=== PATIENT | female | born 1950 | race Caucasian/White ===

== ENCOUNTER 2017-04-09 18:25 | Observation (INO) | payer OTHER, MEDICAID ==
[~2017-04-09] VITALS: Ht 167.6 cm; Wt 85.0 kg
[~2017-04-09 18:25] MED LIST: OMEG100016 PO; OMEP20TA42 PO
[2017-04-09 18:32] VITALS: Ht 167.6 cm; Wt 85.0 kg
[2017-04-09] MEDS ORDERED: NITROGLYCERIN 2% 1 GM OINT PKT TD STA (18:40)
[2017-04-09] MEDS ORDERED: ASPIRIN 81 MG TAB PO STA (18:40)
[2017-04-09] MEDS ORDERED: ONDANSETRON 4 MG INJ IV STA ×2 (18:48→19:54)
[2017-04-09] MEDS ORDERED: NITROGLYCERIN (SL) 0.4 MG TAB SL PRN (19:00)
[2017-04-09 19:03] LABS: BASOPHILS % 0.3 % (0.0-2.0); EOSINOPHILS # 0.1 10^3/ul (0.0-0.5); EOSINOPHILS % 0.7 % (0.0-7.0); HEMATOCRIT 37.4 % (37.0-47.0); HEMOGLOBIN 11.8 g/dl (12.0-16.0); LYMPHOCYTES # 1.1 10^3/ul (0.8-2.9); LYMPHOCYTES % 12.4 % (15.0-51.0); MEAN CORPUSCULAR HEMOGLOBIN 27.7 pg (29.0-33.0); MEAN CORPUSCULAR HGB CONC 31.6 g/dl (32.0-37.0); MEAN CORPUSCULAR VOLUME 87.8 fl (82.0-101.0); MEAN PLATELET VOLUME 11.8 fl (7.4-10.4); MONOCYTE # 0.6 10^3/ul (0.3-0.9); MONOCYTES % 7.1 % (0.0-11.0); NEUTROPHILS % 79.3 % (39.0-77.0); PLATELET COUNT 209 10^3/UL (140-415); RED BLOOD COUNT 4.26 10^6/ul (4.20-5.40); RED CELL DISTRIBUTION WIDTH 16.7 % (11.5-14.5); WHITE BLOOD COUNT 8.8 10^3/ul (4.8-10.8)
[2017-04-09 19:20] LABS: INR 1.04; PARTIAL THROMBOPLASTIN TIME 27.2 Sec (25.0-35.0); PROTIME 13.6 Sec (12.2-14.2); PT RATIO 1.1
[2017-04-09 19:22] LABS: ANION GAP 19 (8-16); BLOOD UREA NITROGEN 17 mg/dl (7-20); CALCIUM 9.5 mg/dl (8.4-10.2); CARBON DIOXIDE 24 mmol/L (21-31); CHLORIDE 99 mmol/L (97-110); CREATININE 0.76 mg/dl (0.44-1.00); GLUCOSE 130 mg/dl (70-220); POTASSIUM 4.1 mmol/L (3.5-5.1); SODIUM 138 mmol/L (135-144)
[2017-04-09 19:33] LABS: TROPONIN-I < 0.012 ng/ml (0.00-0.12)
[2017-04-09] MEDS ORDERED: morphine 4 MG/ML VIAL IV STA (19:54)
--- NOTE | 2017-04-09 20:06 | RADRPT ---
PROCEDURE: XR Chest. CLINICAL INDICATION: Chest pain. TECHNIQUE: Portable AP semi erect view of the chest was obtained. COMPARISON: None available. FINDINGS: The cardiomediastinal silhouette is within normal limits. Mild left basilar subsegmental atelectasi s with slight elevation of the left hemidiaphragm is noted. The right lung is clear. There is no e vidence for pleural effusion, pneumothorax or pulmonary vascular congestion. The osseous structures are intact with no evidence for acute abnormality. Calcification is visible within the aortic arch. RPTAT:HJJR IMPRESSION: 1. Mild left basilar subsegmental atelectasis with associated elevation of the left hemidiaphragm. 2. Aortic atherosclerosis is present. Physician Ernie Date Time Electronically viewed and signed by Physician Ernie on 04/09/2017 20:05 JR/
[2017-04-09] MEDS ORDERED: ONDANSETRON 4 MG INJ IV PRN (20:30)
[2017-04-09] MEDS ORDERED: ACETAMINOPHEN 325 MG TAB PO PRN ×2 (20:30→22:30)
[2017-04-09] MEDS ORDERED: LORAZEPAM 2 MG INJ IV ONE (20:30)
[2017-04-09 21:12] VITALS: TEMP 98.3
--- NOTE | 2017-04-09 21:12 | RADRPT ---
PROCEDURE: CT abdomen and pelvis without contrast. CLINICAL INDICATION: Flank pain TECHNIQUE: CT scan of the abdomen and pelvis without contrast was performed and is reconstructed a t 2.5 mm contiguous axial intervals from the dome of the diaphragm to the inferior pubic rami.. The patient was scanned without intravenous contrast. Sagittal and coronal reformatted images were obt ained from the axial source images. The calculated radiation dose measures 790 mGy centimeters. The CTDI measures 14 mGy. COMPARISON: None. FINDINGS: Noted is a ground-glass interstitial infiltrate at the left lung base. No alveolar infiltrate or ma ss is present. There is no effusion. The liver is of normal size, contour and attenuation with no solid mass or ductal dilatation. 5 mm c yst is seen on the inferior aspect of the right lobe of the liver. No gallstones are visualized. No splenic, adrenal or pancreatic abnormalities present. Kidneys are of normal size and contour. No hydronephrosis, calculus or solid masses seen. There ar e parapelvic cysts in the left kidney. Ureters are of normal course and caliber with no stone. No b ladder mass or stone is present. Uterus is been removed. There is no adnexal mass. There is no aneurysm. No adenopathy is present. No bowel mass or obstruction is present. The appendix is normal. No phlegmon, ascites or pneumop eritoneum is visualized. There is a paraumbilical hernia containing fat. The osseous structures are intact. IMPRESSION: No evidence of urolithiasis, obstructive uropathy, diverticulitis or appendicitis. Parapelvic cysts left kidney. Tiny hepatic cyst. Post hysterectomy. Ground-glass infiltrate left lung base. Question early interstitial pneumonia. .Ross Hurt MD, MD Date Time Electronically viewed and signed by .Ross Hurt MD, on 04/09/2017 21:12 .A/
--- NOTE | 2017-04-09 21:28 | ERA ---
ER Documentation Chief Complaint Date/Time DATE: 04/09/17 TIME: 21:26 Chief Complaint cp and sob x 2 days HPI Patient is a 67-year-old female with hypertension who presents with chest pain and shortness of breath. She has had the symptoms for the past 2 days. She has not been feeling well in general. She has vomiting and diarrhea. She was recently discharged from [facility] with the says that her diagnosis was "tachycardia and shortness of breath". Upon review of old medical records this is the patient's third visit to the ER since 2012. Her primary doctor is Dr. Markham. ROS All systems reviewed and are negative except as per history of present illness. Medications Home Meds Reported Medications [place]-3 Fatty Acids ([place]iterocks-3) 1,000 Mg Capsule, PO DAILY 09/25/12 Omeprazole (Omeprazole) 20 Mg Tablet.dr, PO DAILY 09/25/12 Allergies Allergies: Coded Allergies: vancomycin (Verified Allergy, Intermediate, 04/09/17) cephalexin (Verified Allergy, Mild, ITCHY, RASH, 04/09/17) sulfamethoxazole (Verified Allergy, Mild, ITCHY, RASH, 04/09/17) trimethoprim (Verified Allergy, Mild, ITCHY, RASH, 04/09/17) PMhx/Soc History of Surgery: Yes (ANEURYSM 06/01, HERNIA/HYSTERO/VARICOSE VEINS/CARPAL TUNNEL) Anesthesia Reaction: No Hx Neurological Disorder: No Hx Respiratory Disorders: No Hx Cardiac Disorders: No Hx Psychiatric Problems: No Hx Miscellaneous Medical Probl: No Hx Alcohol Use: Yes (HOLIDAYS) Hx Substance Use: No Hx Tobacco Use: No Smoking Status: Never smoker FmHx Family History: No coronary disease Physical Exam Vitals Vital Signs Date Time Temp Pulse Resp B/P Pulse Ox O2 Delivery O2 Flow Rate FiO2 04/09/17 21:12 98.3 108 16 112/83 95 Nasal Cannula 2.0 04/09/17 18:32 98.2 109 22 122/59 100 Physical Exam Const: Moderate distress Head: Atraumatic Eyes: Normal Conjunctiva ENT: Normal External Ears, Nose and Mouth. Neck: Full range of motion..~ No meningismus. Resp: Clear to auscultation bilaterally Cardio: Regular rate and rhythm, no murmurs Abd: Soft, non tender, non distended. Normal bowel sounds Skin: Pale skin Back: No midline or flank tenderness Ext: No cyanosis, or edema Neur: Awake and alert Psych: Normal Mood and Affect Result Diagram: 04/09/178 04/09/178 Results 24 hrs Laboratory Tests Test 04/09/17 18:48 White Blood Count 8.810^3/ul Red Blood Count 4.2610^6/ul Hemoglobin 11.8g/dl Hematocrit 37.4% Mean Corpuscular Volume 87.8fl Mean Corpuscular Hemoglobin 27.7pg Mean Corpuscular Hemoglobin Concent 31.6g/dl Red Cell Distribution Width 16.7% Platelet Count 48169^3/UL Mean Platelet Volume 11.8fl Neutrophils % 79.3% Lymphocytes % 12.4% Monocytes % 7.1% Eosinophils % 0.7% Basophils % 0.3% Nucleated Red Blood Cells % 0.0/100WBC Neutrophils # 7.010^3/ul Lymphocytes # 1.110^3/ul Monocytes # 0.610^3/ul Eosinophils # 0.110^3/ul Basophils # 0.010^3/ul Nucleated Red Blood Cells # 0.010^3/ul Prothrombin Time 13.6Sec Prothrombin Time Ratio 1.1 INR International Normalized Ratio 1.04 Activated Partial Thromboplast Time 27.2Sec Sodium Level 138mmol/L Potassium Level 4.1mmol/L Chloride Level 99mmol/L Carbon Dioxide Level 24mmol/L Anion Gap 19 Blood Urea Nitrogen 17mg/dl Creatinine 0.76mg/dl Glucose Level 130mg/dl Calcium Level 9.5mg/dl Troponin I < 0.012ng/ml Current Medications Medications (Trade) Dose Ordered Sig/Volodymyr Route PRN Reason Start Time Stop Time Status Last Admin Dose Admin Aspirin (Aspirin) 162 mg ONCE STAT PO 04/09/17 18:40 04/09/17 18:41 DC 04/09/17 19:01 Nitroglycerin (Nitroglycerin 2% Oint) 1 inch ONCE STAT TD 04/09/17 18:40 04/09/17 18:42 DC 04/09/17 19:01 Nitroglycerin (Nitroglycerin (Sl Tab) 0.4 Mg) 1 tab Q5M UP TO 3 DOSES PRN SL CHEST PAIN 04/09/17 19:00 Ondansetron HCl (Zofran Inj) 4 mg ONCE STAT IV 04/09/17 18:48 04/09/17 18:49 DC 04/09/17 19:01 Morphine Sulfate (morphine) 4 mg ONCE STAT IV 04/09/17 19:54 04/09/17 19:55 DC 04/09/17 20:07 Ondansetron HCl (Zofran Inj) 4 mg ONCE STAT IV 04/09/17 19:54 04/09/17 19:55 DC 04/09/17 20:07 Lorazepam (Ativan) 0.5 mg ONCE ONCE IV 04/09/17 20:30 04/09/17 20:31 DC 04/09/17 20:37 Ondansetron HCl (Zofran Inj) 4 mg ER BRIDGE PRN IV NAUSEA AND/OR VOMITING 04/09/17 20:30 04/10/17 20:29 Acetaminophen (Tylenol Tab) 650 mg ER BRIDGE PRN PO MILD PAIN/FEVER 04/09/17 20:30 04/10/17 20:29 Procedures/MDM EKG #1 read by me: Rate/Rhythm: Regular rate and rhythm at a normal rate Intervals: Normal Impression: ST depressions without ST elevations concerning for ischemia EKG #2 read by me: Rate/Rhythm: Regular rate and rhythm at a normal rate Intervals: Normal Impression: ST depressions without ST elevations concerning for ischemia Chest x-ray shows no pneumonia or pneumothorax per radiology. CT abdomen pelvis shows no sign of obstruction or kidney stone per radiology. Patient is a 67-year-old female who presents with chest pain and shortness of breath. I was concerned with her abnormal EKG about a possible acute coronary syndrome. At this point I doubt pneumonia, pneumothorax, pulmonary embolism, or aortic dissection. The patient has anemia with a hemoglobin of 11.8 but does not require transfusion at this time. She was given aspirin, nitroglycerin , and morphine. I spoke with Dr. Cummings for admission to a telemetry bed as the patient has regal insurance and he is covering for regal. The patient will need further workup for the cause of her symptoms. Departure Diagnosis: Primary Impression: Chest pain Qualified Code: R07.9 - Chest pain, unspecified type Condition: MEAGHAN Ledbetter MD Apr 09, 2017 21:28
[2017-04-09] MEDS ORDERED: ATOR10TA65 PO (21:50)
[2017-04-09] MEDS ORDERED: METO-448 PO (21:50)
[2017-04-09] MEDS ORDERED: APIX5TAB PO (21:50)
[2017-04-09] MEDS ORDERED: FLEC50TA PO (21:50)
[2017-04-09] MEDS ORDERED: LINA145C PO (21:50)
[2017-04-09 22:06] VITALS: PULSE 104
[2017-04-09] MEDS ORDERED: ZOLPIDEM 5 MG TAB PO PRN (22:30)
[2017-04-09] MEDS ORDERED: morphine 2 MG INJ IV PRN (22:30)
[2017-04-10] VITALS (13 sets, daily range): BP systolic 102–112; BP diastolic 55–65; PULSE 68–114; RESP 16–20
[2017-04-10 01:33] LABS: CREATINE KINASE 34 IU/L (23-200)
[2017-04-10 01:46] LABS: CK-MB 0.38 ng/ml (0.0-2.4)
[2017-04-10 01:54] LABS: TROPONIN-I < 0.012 ng/ml (0.00-0.12)
[2017-04-10] MEDS: ONDANSETRON 4 MG INJ IV PRN ×2 (03:40→07:49)
[2017-04-10] MEDS: PANTOPRAZOLE (EC) 40 MG TAB PO SCH (06:08)
[2017-04-10 07:52] LABS: CREATINE KINASE 31 IU/L (23-200)
[2017-04-10 07:59] LABS: CK-MB 0.42 ng/ml (0.0-2.4)
[2017-04-10] MEDS ORDERED: LINACLOTIDE 145 MCG XX SCH (08:00)
[2017-04-10 08:16] LABS: TROPONIN-I < 0.012 ng/ml (0.00-0.12)
[2017-04-10] MEDS ORDERED: NON-FORMULARY/PATIENT OWN MED (Linaclotide (Linzess) 145 MCG) XX SCH (09:00)
[2017-04-10] MEDS ORDERED: APIXABAN 5 MG TABLET PO SCH (09:00)
[2017-04-10] MEDS ORDERED: FLECAINIDE 50 MG TAB PO SCH (09:00)
[2017-04-10] MEDS ORDERED: METOPROLOL 25 MG TAB PO SCH (09:00)
--- NOTE | 2017-04-10 14:37 | HP ---
Date/Time of Note Date/Time of Note DATE: 04/10/17 TIME: 14:16 Assessment/Plan VTE Prophylaxis VTE Prophylaxis Intervention: other (On Eliquis) Lines/Catheters IV Catheter Type (from [facility]): Peripheral IV Urinary Cath still in place: No Assessment/Plan Assessment/Plan 67-year-old female: 1. Atrial flutter, recently diagnosed a couple of weeks ago, patient currently on flecainide and metoprolol and Eliquis, apparently was scheduled for follow- up as an outpatient for possible cardioversion. Given recurrence of symptoms, medications being continued and cardiology consulted for possible inpatient cardioversion if indicated. Heart rate is better controlled currently. Thyroid function testing pending, 2D echocardiogram ordered. Cardiac enzymes negative 3. 2. Hyperlipidemia: Check fasting lipid panel, patient already back on statin therapy 3. Chronic constipation, patient already had full workup as an outpatient and supposed to be on Linzess that she has not been compliant with as she claims that is not working. Prophylaxis: Protonix for GI prophylaxis, patient already on Eliquis Disposition: Cardiology evaluation pending, continue current medications. HPI/ROS Admit Date/Time Admit Date/Time Apr 09, 2017 at 20:28 Hx of Present Illness Chief complaint: Palpitations, diaphoresis History of presenting illness: This is a 67-year-old female with history of chronic constipation, mild hyperlipidemia and recently admitted at [facility] 2 weeks ago with diagnosis of either atrial flutter or atrial fibrillation. Patient was seen by Dr. Varela at [facility], she was discharged on flecainide metoprolol and Eliquis. Patient reports that she was doing that fairly well at home however last night had another episode of palpitations with diaphoresis also subsequently had nausea and vomiting. She came to [facility] was evaluated. She was found to be in atrial flutter. She has been admitted on telemetry floor, echocardiogram has been reordered. I have talked to Dr. Varela, this morning, apparently the patient was still waiting for authorization to get cardioversion as an outpatient, therefore I will call the cardiology for evaluation. Currently the patient is chest pain-free, her symptoms have resolved, cardiology evaluation will be called. 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 for further management Medical History: high cholesterol Past Surgical History Status post hysterectomy Status post brain aneurysm surgery 2 years ago in a hospital in "[place]" Social History Alcohol Use: none Smoking Status: Never smoker Drug Use: none Exam/Review of Systems Vital Signs Vitals Vital Signs Date Time Temp Pulse Resp B/P Pulse Ox O2 Delivery O2 Flow Rate FiO2 04/10/17 12:26 104 04/10/17 11:44 97.0 18 108/58 99 04/09/17 21:12 Nasal Cannula 2.0 Intake and Output 04/09/17 04/09/17 04/10/17 15:00 23:00 07:00 Intake Total 400 ml Balance 400 ml Exam Constitutional: alert, oriented, well developed Respiratory: clear to auscultation, normal air movement Cardiovascular: irregular rhythm (Atrial flutter) Gastrointestinal: non-tender, soft Musculoskeletal: nl extremities to inspection Extremities: normal pulses, other (No edema, clubbing or cyanosis) 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 twice daily Metoprolol 25 mg p.o. twice daily Flecainide 50 mg p.o. twice daily Linzess not taken Atorvastatin not taken Current Medications Apixaban (Eliquis) 10 mg BID PO Last administered on 04/10/17 08:32; Admin Dose 10 MG; Start 04/10/17 at 09:00 Atorvastatin Calcium (Lipitor) 10 mg QHS PO ; Start 04/10/17 at 21:00 Flecainide Acetate (Tambocor) 50 mg BID PO Last administered on 04/10/17 08:31 ; Admin Dose 50 MG; Start 04/10/17 at 09:00 Metoprolol Tartrate (Lopressor) 12.5 mg BID PO Last administered on 04/10/17 08:32; Admin Dose 12.5 MG; Start 04/10/17 at 09:00 Miscellaneous Information 145 mcg DAILY XX ; Start 7/24/17 at 09:00; Status UNV Pantoprazole (Protonix Tab) 40 mg DAILY@06 PO Last administered on 04/10/17 06 :08; Admin Dose 40 MG; Start 04/10/17 at 06:00 Acetaminophen (Tylenol Tab) 650 mg Q4H PRN PO PAIN AND OR ELEVATED TEMP; Start 04/09/17 at 22:30 Morphine Sulfate (morphine) 2 mg Q3H PRN IV SEVERE PAIN LEVEL 7-10; Start 04/09 at 22:30 Ondansetron HCl (Zofran Inj) 4 mg Q4H PRN IV NAUSEA AND/OR VOMITING Last administered on 04/10/17 07:49; Admin Dose 4 MG; Start 04/09/17 at 22:30 Zolpidem Tartrate (Ambien) 5 mg HS PRN PO INSOMNIA; Start 04/09/17 at 22:30 Miscellaneous Information (*Order Clarification Bulletin) MEDICATION REQUIRES CLARIFICATION: Q8H XX ; Start 04/10/17 at 08:00 Procedures Procedures PROCEDURE: CT abdomen and pelvis without contrast. CLINICAL INDICATION: Flank pain TECHNIQUE: CT scan of the abdomen and pelvis without contrast was performed and is reconstructed at 2.5 mm contiguous axial intervals from the dome of the diaphragm to the inferior pubic rami.. The patient was scanned without intravenous contrast. Sagittal and coronal reformatted images were obtained from the axial source images. The calculated radiation dose measures 790 mGy centimeters. The CTDI measures 14 mGy. COMPARISON: None. FINDINGS: Noted is a ground-glass interstitial infiltrate at the left lung base. No alveolar infiltrate or mass is present. There is no effusion. The liver is of normal size, contour and attenuation with no solid mass or ductal dilatation. 5 mm cyst is seen on the inferior aspect of the right lobe of the liver. No gallstones are visualized. No splenic, adrenal or pancreatic abnormalities present. Kidneys are of normal size and contour. No hydronephrosis, calculus or solid masses seen. There are parapelvic cysts in the left kidney. Ureters are of normal course and caliber with no stone. No bladder mass or stone is present. Uterus is been removed. There is no adnexal mass. There is no aneurysm. No adenopathy is present. No bowel mass or obstruction is present. The appendix is normal. No phlegmon , ascites or pneumoperitoneum is visualized. There is a paraumbilical hernia containing fat. The osseous structures are intact. IMPRESSION: No evidence of urolithiasis, obstructive uropathy, diverticulitis or appendicitis. Parapelvic cysts left kidney. Tiny hepatic cyst. Post hysterectomy. Ground-glass infiltrate left lung base. Question early interstitial pneumonia. PROCEDURE: XR Chest. CLINICAL INDICATION: Chest pain. TECHNIQUE: Portable AP semi erect view of the chest was obtained. COMPARISON: None available. FINDINGS: The cardiomediastinal silhouette is within normal limits. Mild left basilar subsegmental atelectasis with slight elevation of the left hemidiaphragm is noted. The right lung is clear. There is no evidence for pleural effusion, pneumothorax or pulmonary vascular congestion. The osseous structures are intact with no evidence for acute abnormality. Calcification is visible within the aortic arch. RPTAT:HJJR IMPRESSION: 1. Mild left basilar subsegmental atelectasis with associated elevation of the left hemidiaphragm. 2. Aortic atherosclerosis is present. Physician Ernie Date Time Electronically viewed and signed by Florencio Lugo Physician on 04/09/2017 20:05 KAMALA RICHARD Apr 10, 2017 14:26
--- NOTE | 2017-04-10 15:13 | RADRPT ---
Echocardiogram Report Patient Name: WALTER CRABTREE Gender: Female Date: 1950 Study Date: 10-Apr-2017 Granulator: Cristian Cavazos [facility] Location: 5557 Ref. Physician: YEE MONTANEZ Quality: Good Procedures: Transthoracic echocardiogram with complete 2D, M-Mode, and doppler examination. Indications: Chest Pain. 2D/M Mode Doppler Measurement Value Normal Ranges Measurement Value Normal Ranges LVIDd 2D 3.5 3.5 - 5.6 cm AV Peak Peterson 1.4 m/sec LVIDs 2D 2.0 2.1 - 4.1 cm AV Peak PG 8.1 mmHg LVPWd 2D 1.0 0.6 - 1.1 cm LVOT Peak Peterson 1.1 m/sec IVSd 2D 1.1 0.6 - 1.1 cm LVOT Peak PG 4.4 mmHg AoR Diam 2D 3.2 2.0 - 3.7 cm TR Peak Peterson 2.2 m/sec EDV 2D 51.6 cm3 TR Peak PG 19.2 mmHg ESV 2D 8.1 cm3 RVSP 29.0 mmHg LA Dimen 2D 3.9 2.3 - 4.0 cm Findings Left Ventricle: Lower limits of normal systolic function. Normal left ventricular cavity size. Mild concentric left ventricular hypertrophy. Ejection fraction is visually estimated at 50 %. Abnormal Diastolic Function. Right Ventricle: Normal right ventricular size. Normal right ventricular systolic function. Left Atrium: The left atrium is normal in size. Right Atrium: The right atrium is normal in size. Mitral Valve: Normal appearance and function of the mitral valve with trace physiologic regurgitation. Aortic Valve: Normal appearance of the aortic valve. No significant aortic stenosis or insufficiency. Tricuspid Valve: Normal appearance of the tricuspid valve. Estimated peak PA systolic pressure 27 mmHg. There is mild tricuspid regurgitation. Pulmonic Valve: Normal pulmonic valve appearance. Pericardium: Normal pericardium with no significant pericardial effusion. Aorta: Normal aortic root. IVC: Dilated IVC with respiratory collapse consistent with elevated right atrial pressure. Conclusions 1.Lower limits of normal systolic function. Normal left ventricular cavity size. Mild concentric left ventricular hypertrophy. Ejection fraction is visually estimated at 50 %. Abnormal Diastolic Function. 2.Normal appearance and function of the mitral valve with trace physiologic regurgitation. 3.Normal appearance of the aortic valve. No significant aortic stenosis or insufficiency. 4.Normal appearance of the tricuspid valve. Estimated peak PA systolic pressure 27 mmHg. There is mild tricuspid regurgitation. 5.Dilated IVC with respiratory collapse consistent with elevated right atrial pressure. Electronically Signed By: Philip Sheets 10-Apr-2017 15:12:29 -0700 Patient Name: WALTER CRABTREE Study Date: 10-Apr-2017 [id number]
[2017-04-10] MEDS ORDERED: DILTIAZEM 25 MG INJ IV STA (16:34)
[2017-04-10] MEDS ORDERED: DILTIAZEM (CD) 120 MG CAP PO ONE (16:55)
[2017-04-10] MEDS ORDERED: FLECAINIDE 50 MG TAB PO STA (16:58)
[2017-04-10] MEDS ORDERED: MAGNESIUM SULFATE 2 GM/50 ML 50 ML IVPB ONE (17:00)
--- NOTE | 2017-04-10 17:04 | CONS ---
Date/Time of Note Date/Time of Note DATE: 04/10/17 TIME: 16:58 Assessment/Plan Assessment/Plan Additional Assessment/Plan Nausea, abdominal pain and diarrhea Low normal ejection fraction of 50% Paroxysmal atrial flutter Hypertension -Patient with recent hospitalization at [facility]. I did review the records via [place], patient with atrial flutter at that time, was converted to sinus rhythm with amiodarone and sent out on flecainide 50 mg twice a day. 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 Would change beta-carley to Cardizem, increased dose of flecainide, supplement magnesium to maintain above 2.0 and maintain potassium above 4.0. Given patient with paroxysmal atrial flutter, would ideally pursue medical therapy with possibly self conversion. If heart rate not well controlled, would consider cardioversion Consultation Date/Type/Reason Admit Date/Time Apr 09, 2017 at 20:28 Type of Consultation: cv Reason for Consultation Tachycardia Hx of Present Illness This is a 67-year-old female with past medical history of hypertension, atrial flutter on anticoagulation, who presents with multiple complaints. Over the past 2-3 days, patient with symptoms of fevers and chills, diarrhea, nausea and abdominal pain. Symptoms worsened and she came to the emergency room for further evaluation and care. She denies any chest pain, palpitations or dizziness. She was getting intermittent shortness of breath at times but not associated with activity. Since her admission, she is feeling better. Patient atrial flutter and for this reason cardiology consultation was requested. She states she has been compliant with her home medications. Patient with paroxysmal atrial flutter and was planned to undergo outpatient cardioversion in the near future. 12 point review of systems was performed with all pertinent positives and negatives mentioned above and all else is negative Cardiovascular: chest pain Gastrointestinal: nausea, vomiting Genitourinary: no complaints Skin: no complaints Neurologic: no complaints Past Medical History Atrial flutter Medical History: high cholesterol Family History Significant Family History: no pertinent family hx Social History Alcohol Use: none Smoking Status: Never smoker Drug Use: none Exam/Review of Systems Vital Signs Vitals Vital Signs Date Time Temp Pulse Resp B/P Pulse Ox O2 Delivery O2 Flow Rate FiO2 04/10/17 16:49 114 04/10/17 15:45 98.0 18 112/65 98 04/09/17 21:12 Nasal Cannula 2.0 Intake and Output 04/09/17 04/09/17 04/10/17 15:00 23:00 07:00 Intake Total 400 ml Balance 400 ml Exam Constitutional: alert, oriented Head: normocephalic Neck: supple Respiratory: other (Coarse breath sounds bilaterally, no wheezing) Cardiovascular: irregular rhythm, other (S1-S2 heard) Gastrointestinal: bowel sounds, non-tender, soft Extremities: edema (Trace) Results Result Diagram: 04/09/17 1848 04/09/17 1848 Results 24 hrs Laboratory Tests Test 04/09/17 18:48 04/10/17 00:34 04/10/17 07:10 04/10/17 07:13 White Blood Count 8.8 Red Blood Count 4.26 Hemoglobin 11.8 L Hematocrit 37.4 Mean Corpuscular Volume 87.8 Mean Corpuscular Hemoglobin 27.7 L Mean Corpuscular Hemoglobin Concent 31.6 L Red Cell Distribution Width 16.7 H Platelet Count 209 Mean Platelet Volume 11.8 H Neutrophils % 79.3 H Lymphocytes % 12.4 L Monocytes % 7.1 Eosinophils % 0.7 Basophils % 0.3 Nucleated Red Blood Cells % 0.0 Neutrophils # 7.0 Lymphocytes # 1.1 Monocytes # 0.6 Eosinophils # 0.1 Basophils # 0.0 Nucleated Red Blood Cells # 0.0 Prothrombin Time 13.6 Prothrombin Time Ratio 1.1 INR International Normalized Ratio 1.04 Activated Partial Thromboplast Time 27.2 Sodium Level 138 Potassium Level 4.1 Chloride Level 99 Carbon Dioxide Level 24 Anion Gap 19 H Blood Urea Nitrogen 17 Creatinine 0.76 Glucose Level 130 Calcium Level 9.5 Troponin I < 0.012 < 0.012 < 0.012 Creatine Kinase 34 31 Creatine Kinase Index 1.1 1.4 Creatinine Kinase MB (Mass) 0.38 0.42 Free Thyroxine 0.89 Test 04/10/17 14:10 04/10/17 14:11 Magnesium Level 1.8 Triglycerides Level 54 Cholesterol Level 165 LDL Cholesterol, Calculated 99 HDL Cholesterol 55 Cholesterol/HDL Ratio 3.0 Thyroid Stimulating Hormone (TSH) 1.360 Medications Medications Current Medications Apixaban (Eliquis) 10 mg BID PO Last administered on 04/10/17t 08:32; Admin Dose 10 MG; Start 04/10/17 at 09:00 Atorvastatin Calcium (Lipitor) 10 mg QHS PO ; Start 04/10/17 at 21:00 Flecainide Acetate (Tambocor) 50 mg BID PO Last administered on 04/10/17 08:31 ; Admin Dose 50 MG; Start 04/10/17 at 09:00 Metoprolol Tartrate (Lopressor) 12.5 mg BID PO Last administered on 04/10/17 08:32; Admin Dose 12.5 MG; Start 04/10/17 at 09:00 Pantoprazole (Protonix Tab) 40 mg DAILY@06 PO Last administered on 04/10/17 06 :08; Admin Dose 40 MG; Start 04/10/17 at 06:00 Acetaminophen (Tylenol Tab) 650 mg Q4H PRN PO PAIN AND OR ELEVATED TEMP; Start 04/09/17 at 22:30 Morphine Sulfate (morphine) 2 mg Q3H PRN IV SEVERE PAIN LEVEL 7-10; Start 04/09 at 22:30 Ondansetron HCl (Zofran Inj) 4 mg Q4H PRN IV NAUSEA AND/OR VOMITING Last administered on 04/10/17 07:49; Admin Dose 4 MG; Start 04/09/17 at 22:30 Zolpidem Tartrate (Ambien) 5 mg HS PRN PO INSOMNIA; Start 04/09/17 at 22:30 Procedures Procedures Atrial flutter 2-1 with ventricular rate of 110, QRS 94 ms, nonspecific ST-T wave abnormalities Heriberto Linares DO Apr 10, 2017 17:04
[2017-04-10] MEDS: FLECAINIDE 50 MG TAB PO SCH (20:40)
[2017-04-10] MEDS: APIXABAN 5 MG TABLET PO SCH (20:41)
[2017-04-10] MEDS ORDERED: ATORVASTATIN 10 MG TAB PO SCH (21:00)
[2017-04-11] VITALS (8 sets, daily range): BP systolic 98–114; BP diastolic 51–58; PULSE 73–106; RESP 18–20
[2017-04-11] MEDS: DILTIAZEM (CD) 120 MG CAP PO SCH ×2 (01:58→08:25)
[2017-04-11] MEDS: PANTOPRAZOLE (EC) 40 MG TAB PO SCH (05:29)
[2017-04-11] MEDS: FLECAINIDE 50 MG TAB PO SCH (08:25)
[2017-04-11] MEDS: APIXABAN 5 MG TABLET PO SCH (08:25)
[2017-04-11 09:47] LABS: ALBUMIN 3.8 g/dl (3.3-4.9); ALBUMIN/GLOBULIN RATIO 1.35; BILIRUBIN,INDIRECT 0.3 mg/dl (0-1.1); BILIRUBIN,TOTAL 0.3 mg/dl (0.2-1.3); CALCIUM 9.6 mg/dl (8.4-10.2); CREATININE 0.79 mg/dl (0.44-1.00); POTASSIUM 4.3 mmol/L (3.5-5.1); TOTAL PROTEIN 6.6 g/dl (6.1-8.1)
--- NOTE | 2017-04-11 11:59 | CONS ---
Date/Time of Note Date/Time of Note DATE: 04/11/17 TIME: 11:56 Assessment/Plan Assessment/Plan Additional Assessment/Plan Nausea, abdominal pain and diarrhea Low normal ejection fraction of 50% Paroxysmal atrial flutter Hypertension -Atrial flutter rates controlled even with ambulation. Would continue current dose of flecainide, decrease Cardizem to 180 mg daily. Continue medical management with anticoagulation as well and outpatient cardiology follow-up with her primary police worker. Consultation Date/Type/Reason Admit Date/Time Apr 09, 2017 at 20:28 Initial Consult Date Type of Consultation: cv 24 HR Interval Summary Free Text/Dictation Patient continues to feel better. Denies symptoms of palpitations, dizziness or chest pain. Ambulating the hallway with no symptoms of dizziness, palpitations or shortness of breath Exam/Review of Systems Vital Signs Vitals Vital Signs Date Time Temp Pulse Resp B/P Pulse Ox O2 Delivery O2 Flow Rate FiO2 04/11/17 11:43 98.3 86 18 103/55 94 04/09/17 21:12 Nasal Cannula 2.0 Intake and Output 04/10/17 04/10/17 04/11/17 15:00 23:00 07:00 Intake Total 1050 ml 250 ml Balance 1050 ml 250 ml Exam No apparent distress, at bedside Constitutional: alert, oriented Neck: supple Respiratory: other (Coarse breath sounds bilaterally, no wheezing) Cardiovascular: other (S1-S2 heard), regular rate and rhythm Gastrointestinal: bowel sounds, non-tender, soft Extremities: edema Results Result Diagram: 04/09/17 1848 04/11/17 0757 Results 24 hrs Laboratory Tests Test 04/10/17 14:10 04/10/17 14:11 04/11/17 07:57 Magnesium Level 1.8 Triglycerides Level 54 Cholesterol Level 165 LDL Cholesterol, Calculated 99 HDL Cholesterol 55 Cholesterol/HDL Ratio 3.0 Thyroid Stimulating Hormone (TSH) 1.360 Sodium Level 144 Potassium Level 4.3 Chloride Level 101 Carbon Dioxide Level 29 Anion Gap 18 H Blood Urea Nitrogen 13 Creatinine 0.79 Glucose Level 101 Calcium Level 9.6 Total Bilirubin 0.3 Direct Bilirubin 0.00 Indirect Bilirubin 0.3 Aspartate Amino Transf (AST/SGOT) 24 Alanine Aminotransferase (ALT/SGPT) 26 Alkaline Phosphatase 84 Total Protein 6.6 Albumin 3.8 Globulin 2.80 Albumin/Globulin Ratio 1.35 Medications Medications Current Medications Atorvastatin Calcium (Lipitor) 10 mg QHS PO Last administered on 04/10/17 20: 41; Admin Dose 10 MG; Start 04/10/17 at 21:00 Pantoprazole (Protonix Tab) 40 mg DAILY@06 PO Last administered on 04/11/17 05 :29; Admin Dose 40 MG; Start 04/10/17 at 06:00 Acetaminophen (Tylenol Tab) 650 mg Q4H PRN PO PAIN AND OR ELEVATED TEMP; Start 04/09/17 at 22:30 Morphine Sulfate (morphine) 2 mg Q3H PRN IV SEVERE PAIN LEVEL 7-10; Start 04/09 at 22:30 Ondansetron HCl (Zofran Inj) 4 mg Q4H PRN IV NAUSEA AND/OR VOMITING Last administered on 04/10/17 07:49; Admin Dose 4 MG; Start 04/09/17 at 22:30 Zolpidem Tartrate (Ambien) 5 mg HS PRN PO INSOMNIA; Start 04/09/17 at 22:30 Apixaban (Eliquis) 5 mg BID PO Last administered on 04/11/17 08:25; Admin Dose 5 MG; Start 04/10/17 at 21:00 Flecainide Acetate (Tambocor) 100 mg BID PO Last administered on 04/11/17 08: 25; Admin Dose 100 MG; Start 04/10/17 at 21:00 Diltiazem HCl (Cardizem Cd) 120 mg BID PO Last administered on 04/11/17 08:25 ; Admin Dose 120 MG; Start 04/11/17 at 01:00 Heriberto Linares DO Apr 11, 2017 11:59
[2017-04-11 13:39] LABS: MAGNESIUM 1.9 mg/dl (1.7-2.5)
--- NOTE | 2017-04-11 14:43 | PN ---
Date/Time of Note Date/Time of Note DATE: 04/11/17 TIME: 14:28 Assessment/Plan VTE Prophylaxis VTE Prophylaxis Intervention: other (Eliquis) Lines/Catheters IV [facility] Saline Lock Urinary Cath still in place: No Assessment/Plan Assessment/Plan 67-year-old female: 1. Atrial flutter, recently diagnosed a couple of weeks ago, patient's medications currently Cardizem, Eliquis, increased dose of flecainide. Appreciate further cardiology recommendations this morning, patient stable for discharge today. Follow-up with outpatient cardiology within 1-2 weeks Thyroid function testing pending, 2D echocardiogram stable. Cardiac enzymes negative 3. 2. Hyperlipidemia: Continue statin therapy 3. Chronic constipation, patient already had full workup as an outpatient and supposed to be on Linzess that she has not been compliant with as she claims that is not working. Follow-up with outpatient GI Prophylaxis: Protonix for GI prophylaxis, patient already on Eliquis Disposition: Discharge home today, follow-up with primary care physician in 1 week, follow-up with outpatient cardiology in 1-2 weeks Subjective 24 Hr Interval Summary Free Text/Dictation Patient doing better this morning, heart rate has been controlled, she is back on her Eliquis, appreciate cardiology recommendation and adjustment of medications. Patient will be discharged home today with outpatient cardiology follow-up Exam/Review of Systems Vital Signs Vitals Vital Signs Date Time Temp Pulse Resp B/P Pulse Ox O2 Delivery O2 Flow Rate FiO2 04/11/17 12:19 85 04/11/17 11:43 98.3 18 103/55 94 04/09/17 21:12 Nasal Cannula 2.0 Intake and Output 04/10/17 04/10/17 04/11/17 15:00 23:00 07:00 Intake Total 1050 ml 250 ml Balance 1050 ml 250 ml Exam Constitutional: alert, oriented, well developed Respiratory: clear to auscultation, normal air movement Cardiovascular: irregular rhythm (Atrial flutter), nl pulses Gastrointestinal: non-tender, soft Musculoskeletal: nl extremities to inspection Extremities: normal pulses, other (No edema, clubbing or cyanosis) 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 II-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, nl mental status, nl speech, nl strength Results Result Diagram: 04/09/17 0498 04/11/17 0757 Results 24 hrs Laboratory Tests Test 04/11/17 07:57 Sodium Level 144 Potassium Level 4.3 Chloride Level 101 Carbon Dioxide Level 29 Anion Gap 18 H Blood Urea Nitrogen 13 Creatinine 0.79 Glucose Level 101 Calcium Level 9.6 Phosphorus Level 4.0 Magnesium Level 1.9 Total Bilirubin 0.3 Direct Bilirubin 0.00 Indirect Bilirubin 0.3 Aspartate Amino Transf (AST/SGOT) 24 Alanine Aminotransferase (ALT/SGPT) 26 Alkaline Phosphatase 84 Total Protein 6.6 Albumin 3.8 Globulin 2.80 Albumin/Globulin Ratio 1.35 Medications Medications Current Medications Atorvastatin Calcium (Lipitor) 10 mg QHS PO Last administered on 04/10/17 20: 41; Admin Dose 10 MG; Start 04/10/17 at 21:00 Pantoprazole (Protonix Tab) 40 mg DAILY@06 PO Last administered on 04/11/17 05 :29; Admin Dose 40 MG; Start 04/10/17 at 06:00 Acetaminophen (Tylenol Tab) 650 mg Q4H PRN PO PAIN AND OR ELEVATED TEMP; Start 04/09/17 at 22:30 Morphine Sulfate (morphine) 2 mg Q3H PRN IV SEVERE PAIN LEVEL 7-10; Start 04/09 at 22:30 Ondansetron HCl (Zofran Inj) 4 mg Q4H PRN IV NAUSEA AND/OR VOMITING Last administered on 04/10/17 07:49; Admin Dose 4 MG; Start 04/09/17 at 22:30 Zolpidem Tartrate (Ambien) 5 mg HS PRN PO INSOMNIA; Start 04/09/17 at 22:30 Apixaban (Eliquis) 5 mg BID PO Last administered on 04/11/17 08:25; Admin Dose 5 MG; Start 04/10/17 at 21:00 Flecainide Acetate (Tambocor) 100 mg BID PO Last administered on 04/11/17 08: 25; Admin Dose 100 MG; Start 04/10/17 at 21:00 Diltiazem HCl (Cardizem Cd) 180 mg DAILY PO ; Start 04/12/17 at 09:00 KAMALA RICHARD Apr 11, 2017 14:38
--- NOTE | 2017-04-11 14:44 | PDOCDIS ---
Discharge Instructions CONDITION Patient Condition: Good HOME CARE INSTRUCTIONS: Special Diet: Cardiac Diet ACTIVITY: Activity Restrictions: Slowly Increase Activity FOLLOW UP/APPOINTMENTS Follow-up Plan Follow-up with primary care physician in 1 week Follow-up with outpatient cardiology in 1-2 weeks KAMALA RICHARD Apr 11, 2017 14:44
[2017-04-11] MEDS ORDERED: FLEC50TA PO (14:46)
[2017-04-11] MEDS ORDERED: DILT180C75 PO (14:46)
--- NOTE | 2017-04-12 08:59 | RADRPT ---
Vent Rate: 112 bpm RR Interval: 0 msec SC Interval: 202 msec QRS Duration: 90 msec QT Interval: 358 msec QTC Interval: 488 msec P-R-T Bailey: 0 - -26 - 15 degrees Sinus tachycardia Nonspecific ST and T wave abnormality Abnormal ECG Electronically Signed By: Philip Sheets [id number]
[2017-04-12] MEDS ORDERED: DILTIAZEM (CD) 180 MG CAP PO SCH (09:00)
== END 2017-04-11 16:00 | disposition home or self-care (01) ==
LOC: E/R 18:25 → MS4 20:28
PROVIDERS: ADMIT Internal Medicine; ATTEND Internal Medicine
DX: R07.9 Chest pain, unspecified (principal); I10 Essential (primary) hypertension; I48.92 Unspecified atrial flutter; K21.9 Gastro-esophageal reflux disease without esophagitis; Z79.01 Long term (current) use of anticoagulants; E78.5 Hyperlipidemia, unspecified; K59.00 Constipation, unspecified; E78.00 Pure hypercholesterolemia, unspecified; E66.9 Obesity, unspecified; Z68.30 Body mass index [BMI] 30.0-30.9, adult; Z88.1 Allergy status to other antibiotic agents; Z88.8 Allergy status to other drugs, medicaments and biological substances; Z90.710 Acquired absence of both cervix and uterus
CPT/HCPCS: 36415; 71010; 74176; 80048; 80053; 80061; 82550; 82553; 83735; 84100; 84439; 84443; 84484; 85025; 85610; 85730; 93005; 93306; 96374; 96375; 96376; 99285; G0378; J2060; J2270; J2405; J3475

== ENCOUNTER 2017-07-20 12:51 | Observation (INO) | payer OTHER ==
[~2017-07-20] VITALS: Ht 167.6 cm; Wt 78.2 kg
[~2017-07-20 12:51] MED LIST changes: +APIX5TAB PO; +ATOR10TA65 PO; +DILT180C75 PO; +FLEC50TA PO; +LINA145C PO
[2017-07-20] MEDS ORDERED: ASPIRIN 325 MG TAB PO STA (13:22)
[2017-07-20] MEDS ORDERED: SOD CHLORIDE 0.9% 500 ML IV STA (13:22)
[2017-07-20] MEDS ORDERED: ONDANSETRON 4 MG INJ IV STA (13:22)
[2017-07-20 13:34] LABS: BASOPHIL # 0.1 10^3/ul (0.0-0.1); EOSINOPHILS # 0.1 10^3/ul (0.0-0.5); EOSINOPHILS % 2.6 % (0.0-7.0); LYMPHOCYTES # 1.2 10^3/ul (0.8-2.9); LYMPHOCYTES % 24.6 % (15.0-51.0); MEAN CORPUSCULAR HEMOGLOBIN 31.5 pg (29.0-33.0); MEAN CORPUSCULAR HGB CONC 32.6 g/dl (32.0-37.0); MEAN CORPUSCULAR VOLUME 96.6 fl (82.0-101.0); MEAN PLATELET VOLUME 11.9 fl (7.4-10.4); MONOCYTE # 0.5 10^3/ul (0.3-0.9); MONOCYTES % 9.8 % (0.0-11.0); NEUTROPHILS % 61.8 % (39.0-77.0); PLATELET COUNT 207 10^3/UL (140-415); RED BLOOD COUNT 4.45 10^6/ul (4.20-5.40); RED CELL DISTRIBUTION WIDTH 18.5 % (11.5-14.5); WHITE BLOOD COUNT 4.9 10^3/ul (4.8-10.8)
--- NOTE | 2017-07-20 13:40 | RADRPT ---
PROCEDURE: XR Chest. CLINICAL INDICATION: chest pain TECHNIQUE: Single frontal view of the chest was obtained COMPARISON: CT 04/09/2017; DR CHEST 04/09/2017 FINDINGS: The heart and mediastinum are within normal limits. There is elevation of the left diaphragm. The lungs are clear. There is no pleural effusion or pneumothorax. RPTAT: AA IMPRESSION: No acute disease. Mild elevation of the left diaphragm. .Arsenio Dominique MD, MD Date Time Electronically viewed and signed by .Arsenio Dominique MD, on 07/20/2017 13:40 .S/
[2017-07-20 13:52] LABS: ANION GAP 12 (8-16); BLOOD UREA NITROGEN 12 mg/dl (7-20); CALCIUM 9.3 mg/dl (8.4-10.2); CARBON DIOXIDE 30 mmol/L (21-31); CHLORIDE 106 mmol/L (97-110); CREATININE 0.73 mg/dl (0.44-1.00); GLUCOSE 79 mg/dl (70-220); POTASSIUM 4.2 mmol/L (3.5-5.1); SODIUM 144 mmol/L (135-144)
[2017-07-20 14:04] LABS: B-TYPE NATRIURETIC PEPTIDE 905 PG/ML (0-125)
[2017-07-20 14:08] LABS: TROPONIN-I < 0.012 ng/ml (0.00-0.12)
[2017-07-20] MEDS ORDERED: SOD CHLORIDE 0.9% 500 ML IV ONE (14:30)
--- NOTE | 2017-07-20 17:04 | HP ---
Date/Time of Note Date/Time of Note DATE: 07/20/17 TIME: 17:03 Assessment/Plan VTE Prophylaxis VTE Prophylaxis Intervention: other (On Eliquis) Lines/Catheters IV Catheter Type (from Nrsg): Saline Lock Assessment/Plan Assessment/Plan 67-year-old female with: 1. Palpitations, atrial fibrillation on EKG in the emergency department, converted to sinus rhythm currently. Cardiac enzymes have been ordered, first set is negative. Thyroid function testing ordered. Continue Eliquis for now. Per ER physician, Dr. Varela has requested for the patient to be put on amiodarone, however patient has converted to sinus rhythm currently currently she is in sinus rhythm in the 60s, follow-up further recommendation from Dr. Varela. 2. Hyperlipidemia: Check fasting lipid panel in a.m., continue atorvastatin 3. Chronic constipation: Continue home medication, Linzess Prophylaxis: Pepcid for GI prophylaxis, patient already on Eliquis for anticoagulation Disposition: Telemetry observation, follow-up recommendations from cardiology, Dr. Varela. HPI/ROS Admit Date/Time Admit Date/Time Hx of Present Illness Chief complaint: Palpitations History of presenting illness: This is a 67-year-old female with known history of atrial flutter, was on flecainide previously, was taken off flecainide apparently as an outpatient, presented to the emergency department sent over by her primary drainman Dr. Varela with complains of palpitations. Patient reports that this morning she started having palpitations, she checked her pulse , it was around 129. She called her primary drainman who asked her to go to the emergency department. In the emergency department she did have an EKG which did confirm heart rate at 129, EKG was reviewed by Dr. Varela and patient seems to be actually in atrial fibrillation. By the time I am seeing her in the emergency department, she seems to have converted to sinus rhythm in the 60s. This morning at the onset of the palpitations, patient denies shortness of breath, dizziness, chest pain, diaphoresis, nausea or vomiting. She is being admitted to telemetry observation, Dr. Varela is consulted. 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 Hyperlipidemia Past Surgical History Status post hysterectomy Status post brain aneurysm surgery 2 years ago in a hospital in "[place]" Family History Significant Family History: no pertinent family hx Social History Alcohol Use: none Smoking Status: Never smoker Drug Use: none Exam/Review of Systems Vital Signs Vitals Vital Signs Date Time Temp Pulse Resp B/P Pulse Ox O2 Delivery O2 Flow Rate FiO2 07/20/17 12:53 98.1 121 18 149/69 98 Exam Constitutional: alert, oriented, well developed Respiratory: clear to auscultation, normal air movement Cardiovascular: nl pulses, other (In sinus rhythm currently on telemetry), regular rate and rhythm Gastrointestinal: non-tender, soft Musculoskeletal: nl extremities to inspection Extremities: normal pulses, other (No edema, clubbing or cyanosis) 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 CLINICAL INDICATION: chest pain TECHNIQUE: Single frontal view of the chest was obtained COMPARISON: CT 04/09/2017; CHEST 04/09/2017 FINDINGS: The heart and mediastinum are within normal limits. There is elevation of the left diaphragm. The lungs are clear. There is no pleural effusion or pneumothorax. RPTAT: AA IMPRESSION: No acute disease. Mild elevation of the left diaphragm. .Arsenio Dominique MD, MD Date Time Electronically viewed and signed by .Arsenio Dominique MD, MD on 07/20/2017 13: 40 KAMALA RICHARD Jul 20, 2017 17:04
[2017-07-20] MEDS ORDERED: BISACODYL 10 MG SUPP PR PRN (17:30)
[2017-07-20] MEDS ORDERED: DOCUSATE SODIUM 100 MG CAP PO PRN (17:30)
[2017-07-20] MEDS ORDERED: ACETAMINOPHEN 325 MG TAB PO PRN ×2 (17:30→18:00)
[2017-07-20] MEDS ORDERED: LORAZEPAM 0.5 MG TAB PO PRN (17:30)
[2017-07-20] MEDS ORDERED: NITROGLYCERIN (SL) 0.4 MG TAB SL PRN (17:30)
[2017-07-20] MEDS ORDERED: MAGNESIUM HYDROXIDE 30ML CUP PO PRN (17:30)
[2017-07-20] MEDS ORDERED: morphine 2 MG INJ IV PRN (17:30)
[2017-07-20] MEDS ORDERED: ONDANSETRON 4 MG INJ IV PRN ×2 (17:30→18:00)
[2017-07-20] MEDS ORDERED: NACL 0.9% 3 ML SYG IV SCH (17:30)
[2017-07-20] MEDS ORDERED: ZOLPIDEM 5 MG TAB PO PRN (17:30)
[2017-07-20] MEDS ORDERED: AMIODARONE 900 MG in DEXTROSE 5% 482 ML IV SCH (18:00)
--- NOTE | 2017-07-20 19:43 | ERD ---
ER Documentation Chief Complaint Chief Complaint chest pain strated @ 0830 am HPI 67-year-old female brought in by ambulance for chest pressure and palpitations that started 830 this morning. She has extreme shortness of breath on exertion when she is at rest she does not have shortness of breath. History of irregular heartbeat is on Eliquis. Her network engineering advisor recently stopped antiarrhythmic medications. States that she has been at this hospital as well as [facility] for her irregular heartbeat. ROS All systems reviewed and are negative except as per history of present illness. Medications Home Meds Active Scripts Diltiazem Hcl* (Cardizem CD*) 180 Mg Cap.sr.24h, 180 MG PO DAILY for 30 Days, 3 Refills Prov:KAMALA RICHARD 04/11/17 Flecainide Acetate* (Flecainide Acetate*) 50 Mg Tablet, 100 MG PO BID for 30 Days, TAB 3 Refills take 2 tabs twice daily Prov:KAMALA RICHARD 04/11/17 Reported Medications Linaclotide (LINZESS) 145 Mcg Capsule, 145 MCG PO DAILY, #30 CAP 04/09/17 Apixaban* (Eliquis*) 5 Mg Tablet, 10 MG PO BID, TAB 04/09/17 Atorvastatin Calcium (Atorvastatin Calcium) 10 Mg Tablet, 10 MG PO QHS, #30 TAB 04/09/17 Bangor-3 Fatty Acids (Bangor-3) 1,000 Mg Capsule, 1000 MG PO DAILY 09/25/12 Discontinued Reported Medications Omeprazole (Omeprazole) 20 Mg Tablet.dr, PO DAILY 09/25/12 Allergies Allergies: Coded Allergies: vancomycin (Verified Allergy, Intermediate, 07/20/17) cephalexin (Verified Allergy, Mild, ITCHY, RASH, 07/20/17) sulfamethoxazole (Verified Allergy, Mild, ITCHY, RASH, 07/20/17) trimethoprim (Verified Allergy, Mild, ITCHY, RASH, 07/20/17) PMhx/Soc History of Surgery: Yes (HYSTERECTOMY, CRANIOTOMY) Anesthesia Reaction: No Hx Neurological Disorder: No Hx Respiratory Disorders: No Hx Cardiac Disorders: No Hx Psychiatric Problems: Yes Hx Miscellaneous Medical Probl: Yes (ANEURYSM, VARICOSE VEINS,CARPAL TUNNEL) Hx Alcohol Use: No Hx Substance Use: No Hx Tobacco Use: No Smoking Status: Never smoker Physical Exam Vitals Vital Signs Date Time Temp Pulse Resp B/P Pulse Ox O2 Delivery O2 Flow Rate FiO2 07/20/17 17:34 58 18 103/52 98 07/20/17 17:13 58 18 101/55 98 07/20/17 15:45 58 18 99/71 98 07/20/17 12:53 98.1 121 18 149/69 98 Physical Exam Const: [] Moderate distress, appears uncomfortable Head: Atraumatic Eyes: Normal Conjunctiva ENT: Normal External Ears, Nose and Mouth. Neck: Full range of motion.. No JVD Resp: Clear to auscultation bilaterally Cardio: Regular tachycardia no murmurs Abd: Soft, non tender, non distended. Normal bowel sounds Skin: No petechiae or rashes Ext: No cyanosis, or edema Neur: Awake and alert and oriented 3, no focal deficits Psych: Tyler anxious Result Diagram: 07/20/17 1318 07/20/17 1318 Results 24 hrs Laboratory Tests Test 07/20/17 13:18 White Blood Count 4.910^3/ul Red Blood Count 4.4510^6/ul Hemoglobin 14.0g/dl Hematocrit 43.0% Mean Corpuscular Volume 96.6fl Mean Corpuscular Hemoglobin 31.5pg Mean Corpuscular Hemoglobin Concent 32.6g/dl Red Cell Distribution Width 18.5% Platelet Count 74671^3/UL Mean Platelet Volume 11.9fl Neutrophils % 61.8% Lymphocytes % 24.6% Monocytes % 9.8% Eosinophils % 2.6% Basophils % 1.0% Nucleated Red Blood Cells % 0.0/100WBC Neutrophils # 3.010^3/ul Lymphocytes # 1.210^3/ul Monocytes # 0.510^3/ul Eosinophils # 0.110^3/ul Basophils # 0.110^3/ul Nucleated Red Blood Cells # 0.010^3/ul Sodium Level 144mmol/L Potassium Level 4.2mmol/L Chloride Level 106mmol/L Carbon Dioxide Level 30mmol/L Anion Gap 12 Blood Urea Nitrogen 12mg/dl Creatinine 0.73mg/dl Glucose Level 79mg/dl Calcium Level 9.3mg/dl Troponin I < 0.012ng/ml B-Type Natriuretic Peptide 905PG/ML Current Medications Medications (Trade) Dose Ordered Sig/Volodymyr Route PRN Reason Start Time Stop Time Status Last Admin Dose Admin Sodium Chloride (NS) 500 ml @ 500 mls/hr Q1H STAT IV 07/20/17 13:22 07/20/17 14:21 DC 07/20/17 13:26 Aspirin (Aspirin) 325 mg ONCE STAT PO 07/20/17 13:22 07/20/17 13:23 DC 07/20/17 13:31 Ondansetron HCl 4 mg 4 mg ONCE STAT IV 07/20/17 13:22 07/20/17 13:23 DC 07/20/17 13:31 Sodium Chloride (NS) 500 ml @ 500 mls/hr Q1H ONCE IV 07/20/17 14:30 07/20/17 15:29 DC Atorvastatin Calcium (Lipitor) 10 mg QHS PO 07/20/17 21:00 Miscellaneous Information 145 mcg DAILY PO 07/21/17 09:00 UNV Fish Oil (Fish Oil) 1,000 mg DAILY PO 07/21/17 09:00 Apixaban (Eliquis) 5 mg BID PO 07/20/17 21:00 IV Flush (NS 3 ml) 3 ml PER PROTOCOL IV 07/20/17 17:30 Lorazepam (Ativan) 0.5 mg Q8H PRN PO ANXIETY 07/20/17 17:30 Ondansetron HCl (Zofran Inj) 4 mg Q6H PRN IV NAUSEA AND/OR VOMITING 07/20/17 17:30 Nitroglycerin (Nitroglycerin (Sl Tab) 0.4 Mg) 1 tab Q5M PRN SL CHEST PAIN 07/20/17 17:30 Acetaminophen (Tylenol Tab) 650 mg Q6H PRN PO PAIN LEVEL 1-3 OR FEVER 07/20/17 17:30 Morphine Sulfate (morphine) 2 mg Q4H PRN IV PAIN LEVEL 7-10 07/20/17 17:30 Zolpidem Tartrate (Ambien) 5 mg QHS PRN PO INSOMNIA 07/20/17 17:30 Docusate Sodium (Colace) 100 mg Q12H PRN PO CONSTIPATION 07/20/17 17:30 Magnesium Hydroxide (Milk Of Mag) 30 ml DAILY PRN PO CONSTIPATION 07/20/17 17:30 Bisacodyl (Dulcolax Supp) 10 mg DAILY PRN [place] CONSTIPATION 07/20/17 17:30 Famotidine 20 mg 20 mg Q12 PO 07/20/17 21:00 Amiodarone HCl/ Dextrose (Cordarone Iv/ D5W) 500 ml @ 0 mls/hr Q0M IV 07/20/17 18:00 07/20/17 18:00 DC Ondansetron HCl (Zofran Inj) 4 mg ER BRIDGE PRN IV NAUSEA AND/OR VOMITING 07/20/17 18:00 07/21/17 17:59 Acetaminophen (Tylenol Tab) 650 mg ER BRIDGE PRN PO MILD PAIN/FEVER 07/20/17 18:00 07/21/17 17:59 Procedures/MDM Chest pain with cardiac arrhythmia. Spoke with , patient's network engineering advisor who believes that the EKGs represent A. fib or a flutter. He recommended a drip of amiodarone. Drip was ordered however prior to administration the patient converted to sinus bradycardia. Patient is being admitted for addressing this paroxysmal cardiac arrhythmia. is admitting to telemetry with the network engineering advisor on consult. EKG interpretation #1: Sinus tachycardia rate of 113, inverted P waves in most leads consistent with ectopic focus, ST depressions in inferior leads concerning for depression versus rate related ST depressions. Normal intervals. EKG #2 interpretation: Sinus bradycardia rate of 58, first-degree AV block, normal axis, no ST or T-wave changes concerning for acute ischemia. Inverted T waves in leads III only Monitor interpretation: Initial tachycardia rate of 120s-130s, only decreased to 1 teens after fluid administration. Spontaneous conversion to mild sinus bradycardia. Chest x-ray interpretation: I see no acute process, I see no pulmonary edema, no infiltrates, no fractures, no pneumothorax. Critical care time greater than 35 minutes: This includes treatment of symptomatic arrhythmia with unstable vital signs, careful fluid administration, multiple visits patient's bedside to reassess status, discontinuation of amiodarone drip, discussion with acute care clinical nurse specialist and admitting doctor, review of chart. This does not include billable procedures. Departure Diagnosis: Primary Impression: Chest pain Additional Impression: Atrial flutter with rapid ventricular response Condition: Serious ZOILAJOVANYMELONY DO Jul 20, 2017 19:43
[2017-07-20 20:00] LABS: CK-MB 0.81 ng/ml (0.0-2.4); TROPONIN-I 0.016 ng/ml (0.00-0.12)
[2017-07-20 20:30] VITALS: BP 114/56; RESP 18
[2017-07-20 20:35] VITALS: Ht 167.6 cm; Wt 78.2 kg
[2017-07-20] MEDS ORDERED: ATORVASTATIN 10 MG TAB PO SCH (21:00)
[2017-07-20 21:12] VITALS: PULSE 61
[2017-07-20] MEDS: FAMOTIDINE 20 MG TAB PO SCH (21:47)
[2017-07-20] MEDS: APIXABAN 5 MG TABLET PO SCH (21:47)
[2017-07-21] VITALS (8 sets, daily range): BP systolic 100–123; BP diastolic 51–56; PULSE 45–54; RESP 16–18
[2017-07-21 01:47] LABS: CK-MB 0.68 ng/ml (0.0-2.4); TROPONIN-I 0.013 ng/ml (0.00-0.12)
[2017-07-21 08:26] LABS: BASOPHILS % 0.7 % (0.0-2.0); EOSINOPHILS # 0.2 10^3/ul (0.0-0.5); EOSINOPHILS % 3.5 % (0.0-7.0); HEMATOCRIT 36.7 % (37.0-47.0); HEMOGLOBIN 11.6 g/dl (12.0-16.0); LYMPHOCYTES # 1.7 10^3/ul (0.8-2.9); LYMPHOCYTES % 38.9 % (15.0-51.0); MEAN CORPUSCULAR HEMOGLOBIN 30.8 pg (29.0-33.0); MEAN CORPUSCULAR HGB CONC 31.6 g/dl (32.0-37.0); MEAN CORPUSCULAR VOLUME 97.3 fl (82.0-101.0); MEAN PLATELET VOLUME 12.2 fl (7.4-10.4); MONOCYTE # 0.4 10^3/ul (0.3-0.9); MONOCYTES % 9.7 % (0.0-11.0); PLATELET COUNT 147 10^3/UL (140-415); RED BLOOD COUNT 3.77 10^6/ul (4.20-5.40); RED CELL DISTRIBUTION WIDTH 18.8 % (11.5-14.5); WHITE BLOOD COUNT 4.3 10^3/ul (4.8-10.8)
[2017-07-21 09:00] LABS: ALBUMIN/GLOBULIN RATIO 1.15; BILIRUBIN,INDIRECT 0.3 mg/dl (0-1.1); BILIRUBIN,TOTAL 0.3 mg/dl (0.2-1.3); CALCIUM 9.1 mg/dl (8.4-10.2); CHOL/HDL RATIO 2.5 RATIO; CREATININE 0.7 mg/dl (0.44-1.00); MAGNESIUM 1.9 mg/dl (1.7-2.5); POTASSIUM 3.9 mmol/L (3.5-5.1); TOTAL PROTEIN 5.6 g/dl (6.1-8.1)
[2017-07-21] MEDS ORDERED: [UNRECOGNIZED DRUG - OTHER] XX SCH (09:00)
[2017-07-21] MEDS ORDERED: NON-FORMULARY/PATIENT OWN MED (Linaclotide (Linzess) 145 MCG) XX SCH (09:00)
[2017-07-21] MEDS ORDERED: FISH OIL 1,000 MG CAP PO SCH (09:00)
[2017-07-21] MEDS: FAMOTIDINE 20 MG TAB PO SCH (09:21)
[2017-07-21] MEDS: APIXABAN 5 MG TABLET PO SCH (09:21)
[2017-07-21 09:25] LABS: THYROID STIMULATING HORMONE 2.12 MIU/L (0.465-4.680)
--- NOTE | 2017-07-21 11:39 | PN ---
Date/Time of Note Date/Time of Note DATE: 07/21/17 TIME: 11:35 Assessment/Plan VTE Prophylaxis VTE Prophylaxis Intervention: other (On Eliquis) Lines/Catheters IV Catheter Type (from Nrs): Saline Lock Urinary Cath still in place: No Assessment/Plan Assessment/Plan 67-year-old female with: 1. Palpitations, atrial fibrillation on EKG in the emergency department, patient converted to sinus rhythm prior to administration of amiodarone and her heart rate has been staying below 16 most of the time and down to 45 overnight, asymptomatic. She remains in sinus rhythm, I have discussed with Dr. Varela, her primary slab worker, he will see patient as an outpatient and decide if needs to put on low-dose amiodarone since apparently the patient was not able to tolerate beta blockers or any other antiarrhythmics so far. C Cardiac enzymes negative 3. Thyroid function within normal limits. Continue Eliquis. 2. Hyperlipidemia: Continue atorvastatin 3. Chronic constipation: Continue home medication, Linzess Prophylaxis: Pepcid for GI prophylaxis, patient already on Eliquis for anticoagulation Disposition: Discharge home today, follow-up with cardiology, Dr. Varela next week. Subjective 24 Hr Interval Summary Free Text/Dictation Patient to remain in sinus rhythm overnight, heart rate has been varying between 45 and 65 sinus rhythm, I have discussed with Dr. jessica Gatica her primary slab worker the fact that she converted on her own, no amiodarone was given at any time, he will see the patient as an outpatient and decide if needs to put on low-dose amiodarone. Exam/Review of Systems Vital Signs Vitals Vital Signs Date Time Temp Pulse Resp B/P Pulse Ox O2 Delivery O2 Flow Rate FiO2 07/21/17 11:18 98.0 56 18 123/56 96 07/20/17 19:30 Room Air Exam Constitutional: alert, oriented, well developed Respiratory: clear to auscultation, normal air movement Cardiovascular: nl pulses, regular rate and rhythm Gastrointestinal: non-tender, soft Musculoskeletal: nl extremities to inspection, nl gait and stance Neurological: BALANCE WHEEL MOTION INSPECTOR II-XII intact, nl mental status, nl speech, nl strength Results Result Diagram: 07/21/17 0641 07/21/17 0641 Results 24 hrs Laboratory Tests Test 07/20/17 13:18 07/20/17 19:23 07/21/17 00:51 07/21/17 06:41 White Blood Count 4.9 # 4.3 L Red Blood Count 4.45 3.77 L Hemoglobin 14.0 11.6 L Hematocrit 43.0 36.7 L Mean Corpuscular Volume 96.6 97.3 Mean Corpuscular Hemoglobin 31.5 30.8 Mean Corpuscular Hemoglobin Concent 32.6 31.6 L Red Cell Distribution Width 18.5 H 18.8 H Platelet Count 207 147 # Mean Platelet Volume 11.9 H 12.2 H Neutrophils % 61.8 47.0 Lymphocytes % 24.6 38.9 Monocytes % 9.8 9.7 Eosinophils % 2.6 3.5 Basophils % 1.0 0.7 Nucleated Red Blood Cells % 0.0 0.0 Neutrophils # 3.0 2.0 Lymphocytes # 1.2 1.7 Monocytes # 0.5 0.4 Eosinophils # 0.1 0.2 Basophils # 0.1 0.0 Nucleated Red Blood Cells # 0.0 0.0 Sodium Level 144 145 H Potassium Level 4.2 3.9 Chloride Level 106 110 Carbon Dioxide Level 30 31 Anion Gap 12 8 Blood Urea Nitrogen 12 14 Creatinine 0.73 0.70 Glucose Level 79 87 Calcium Level 9.3 9.1 Troponin I < 0.012 0.016 0.013 B-Type Natriuretic Peptide 905 H Creatine Kinase 33 28 Creatine Kinase Index 2.5 2.4 Creatinine Kinase MB (Mass) 0.81 0.68 Magnesium Level 1.9 Total Bilirubin 0.3 Direct Bilirubin 0.00 Indirect Bilirubin 0.3 Aspartate Amino Transf (AST/SGOT) 26 Alanine Aminotransferase (ALT/SGPT) 31 Alkaline Phosphatase 66 Total Protein 5.6 L Albumin 3.0 L Globulin 2.60 Albumin/Globulin Ratio 1.15 Triglycerides Level 70 Cholesterol Level 128 LDL Cholesterol, Calculated 64 HDL Cholesterol 50 Cholesterol/HDL Ratio 2.5 Thyroid Stimulating Hormone (TSH) 2.120 Free Thyroxine 1.02 Medications Medications Current Medications Atorvastatin Calcium (Lipitor) 10 mg QHS PO Last administered on 07/20/17t 21: 48; Admin Dose 10 MG; Start 07/20/17 at 21:00 Miscellaneous Information 145 mcg DAILY XX ; Start 07/21/17 at 09:00; Status UNV Fish Oil (Fish Oil) 1,000 mg DAILY PO Last administered on 07/21/17 09:21; Admin Dose 1,000 MG; Start 07/21/17 at 09:00 Apixaban (Eliquis) 5 mg BID PO Last administered on 07/21/17 09:21; Admin Dose 5 MG; Start 07/20/17 at 21:00 Lorazepam (Ativan) 0.5 mg Q8H PRN PO ANXIETY; Start 07/20/17 at 17:30 Ondansetron HCl (Zofran Inj) 4 mg Q6H PRN IV NAUSEA AND/OR VOMITING; Start 07/20/17 at 17:30 Nitroglycerin (Nitroglycerin (Sl Tab) 0.4 Mg) 1 tab Q5M PRN SL CHEST PAIN; Start 07/20/17 at 17:30 Acetaminophen (Tylenol Tab) 650 mg Q6H PRN PO PAIN LEVEL 1-3 OR FEVER; Start 07/20/17 at 17:30 Morphine Sulfate (morphine) 2 mg Q4H PRN IV PAIN LEVEL 7-10; Start 07/20/17 at 17:30 Zolpidem Tartrate (Ambien) 5 mg QHS PRN PO INSOMNIA; Start 07/20/17 at 17:30 Docusate Sodium (Colace) 100 mg Q12H PRN PO CONSTIPATION; Start 07/20/17 at 17: 30 Magnesium Hydroxide (Milk Of Mag) 30 ml DAILY PRN PO CONSTIPATION; Start at 17:30 Bisacodyl (Dulcolax Supp) 10 mg DAILY PRN [place] CONSTIPATION; Start 07/20/17 at 17 :30 Famotidine (Pepcid) 20 mg Q12 PO Last administered on 07/21/17 09:21; Admin Dose 20 MG; Start 07/20/17 at 21:00 Miscellaneous Information (*Order Clarification Bulletin) MEDICATION REQUIRES CLARIFICATION: Q8H XX ; Start 07/21/17 at 09:00 KAMALA RICHARD Jul 21, 2017 11:39
--- NOTE | 2017-07-21 11:40 | PDOCDIS ---
Discharge Instructions CONDITION Patient Condition: Stable HOME CARE INSTRUCTIONS: Special Diet: LOW FAT, LOW CHOLESTEROL ACTIVITY: Activity Restrictions: No Restrictions FOLLOW UP/APPOINTMENTS Follow-up Plan Follow-up with primary care physician within 1 week Follow-up with cardiology, Dr. Varela next week OTHER ORDERS: Other Orders: Of note patient has been off Cardizem and flecainide already as an outpatient, not to be resumed. Her Eliquis is likely 5 mg p.o. twice daily, prescription given but if patient has been taking 5 mg p.o. twice daily she should remain on that dose. KAMALA RICHARD Jul 21, 2017 11:40
[2017-07-21] MEDS ORDERED: APIX5TAB PO (11:41)
--- NOTE | 2017-07-21 14:13 | RADRPT ---
Vent Rate: 55 bpm RR Interval: 0 msec OK Interval: 206 msec QRS Duration: 90 msec QT Interval: 442 msec QTC Interval: 422 msec P-R-T [place]: 60 - 14 - 34 degrees Sinus bradycardia Possible posterior infarct , age undetermined Abnormal ECG Electronically Signed By: Barney Mitchell [id number]
== END 2017-07-21 14:21 | disposition home or self-care (01) ==
LOC: E/R 12:51 → TEL 17:37
PROVIDERS: ADMIT Internal Medicine; ATTEND Internal Medicine
DX: I48.91 Unspecified atrial fibrillation (principal); E78.5 Hyperlipidemia, unspecified; K59.00 Constipation, unspecified; Z90.710 Acquired absence of both cervix and uterus; Z88.2 Allergy status to sulfonamides; Z88.1 Allergy status to other antibiotic agents; Z88.3 Allergy status to other anti-infective agents
CPT/HCPCS: 36415; 71010; 80048; 80053; 80061; 82550; 82553; 83735; 83880; 84439; 84443; 84484; 85025; 93005; 96374; 99291; G0378; J2405; J7040

== ENCOUNTER 2017-08-13 13:27 | Emergency (ER) | payer OTHER, MEDICAID ==
[~2017-08-13] VITALS: Ht 165.1 cm; Wt 65.9 kg
[~2017-08-13 13:27] MED LIST changes: -DILT180C75 PO; -FLEC50TA PO; -OMEP20TA42 PO
[2017-08-13 13:31] VITALS: Ht 165.1 cm; Wt 65.9 kg
--- NOTE | 2017-08-13 13:46 | ERD ---
ER Documentation Chief Complaint Chief Complaint RT ARM PAIN/DEFORMITY S/P GROUND LEVEL MECHANICAL FALL. NO LOC, NO N/V. HPI Patient is a 67-year-old female who had a mechanical trip and fall at [employer] and landed on her right elbow she complains of focal pain to the right elbow. She denies numbness or paresthesia. She denies head trauma or other injury. She is right-hand dominant. She takes Eliquis for "tachycardia". ROS All systems reviewed and are negative except as per history of present illness. Medications Home Meds Active Scripts Polyethylene Glycol* (Miralax*) 17 Gm Powd.pack, 17 GM PO DAILY, #7 PACKET Prov:DELILAH VYAS MD 08/13/17 Oxycodone HCl/Acetaminophen (Percocet 5-325 mg Tablet) 1 Each Tablet, 1 EACH PO Q6H Y for PAIN LEVEL 6-10, #14 TAB Prov:DELILAH VYAS MD 08/13/17 Apixaban* (Eliquis*) 5 Mg Tablet, 5 MG PO BID for 30 Days, TAB 3 Refills Prov:KAMALA RICHARD 07/21/17 Reported Medications Linaclotide (Linzess) 72 Mcg Capsule, 72 MCG PO DAILY, CAP 08/13/17 Cholecalciferol (Vitamin D3) (VITAMIN D-3) 2,000 Unit Capsule, 2000 UNIT PO DAILY, CAP 08/13/17 Atorvastatin Calcium (Atorvastatin Calcium) 10 Mg Tablet, 5 MG PO QHS, #30 TAB 08/13/17 Amiodarone Hcl* (Amiodarone Hcl*) 100 Mg Tablet, 100 MG PO DAILY, #30 TAB 08/13/17 Discontinued Reported Medications Linaclotide (LINZESS) 145 Mcg Capsule, 145 MCG PO DAILY, #30 CAP 04/09/17 Atorvastatin Calcium (Atorvastatin Calcium) 10 Mg Tablet, 10 MG PO QHS, #30 TAB 04/09/17 [place]-3 Fatty Acids ([place]-3) 1,000 Mg Capsule, 1000 MG PO DAILY 09/25/12 Allergies Allergies: Coded Allergies: vancomycin (Verified Allergy, Intermediate, 08/13/17) cephalexin (Verified Allergy, Mild, ITCHY, RASH, 08/13/17) sulfamethoxazole (Verified Allergy, Mild, ITCHY, RASH, 08/13/17) trimethoprim (Verified Allergy, Mild, ITCHY, RASH, 08/13/17) erythromycin base (Verified Allergy, Unknown, 08/13/17) PMhx/Soc Past medical history: Hyperlipidemia, tachycardia Past surgical history: Intracranial aneurysm repair, hernia surgery, hysterectomy toe surgery, carpal tunnel release Social history: Denies tobacco or alcohol History of Surgery: Yes (VEIN STRIPPING, METALS ON LEFT TOES) Anesthesia Reaction: No Hx Neurological Disorder: No Hx Respiratory Disorders: No Hx Cardiac Disorders: Yes Hx Psychiatric Problems: Yes Hx Miscellaneous Medical Probl: Yes (ANEMIA) Hx Alcohol Use: No Hx Substance Use: No Hx Tobacco Use: No FmHx Family History: No coronary disease, No diabetes Physical Exam Vitals Vital Signs Date Time Temp Pulse Resp B/P Pulse Ox O2 Delivery O2 Flow Rate FiO2 08/13/17 17:03 71 20 130/69 Room Air 08/13/17 13:31 98.6 86 16 138/56 99 Physical Exam Const: Alert, no acute distress Head: Atraumatic Eyes: Normal Conjunctiva ENT: Normal External Ears, Nose and Mouth. Neck: Full range of motion..~ No meningismus. Resp: Clear to auscultation bilaterally Cardio: Regular rate and rhythm, no murmurs Abd: Soft, non tender, non distended. Skin: No petechiae or rashes Back: No midline or flank tenderness Ext: Tenderness and deformity to right elbow with joint effusion. No tenderness in the forearm, wrist, hand, upper arm or shoulder. Skin intact. Compartments soft. 2+ radial pulse. Mild soft tissue tenderness over the deltoid ligament and anterior fibulotalar ligaments. No tenderness over the distal medial or lateral malleolus. No joint instability. No deformity. 2+ DP pulse. Neur: Awake and alert, Cranial nerves II through XII intact bilaterally, strength and sensation full in 4 extremities. Psych: Normal Mood and Affect Results 24 hrs Current Medications Medications (Trade) Dose Ordered Sig/Volodymyr Route PRN Reason Start Time Stop Time Status Last Admin Dose Admin Oxycodone/ Acetaminophen (Percocet (5/ 325)) 1 tab ONCE ONCE PO 08/13/17 14:00 08/13/17 14:01 DC 08/13/17 13:47 Propofol (Diprivan) 200 mg ONCE ONCE IV 08/13/17 15:30 08/13/17 15:31 DC Oxycodone/ Acetaminophen (Percocet (5/ 325)) 1 tab ONCE ONCE PO 08/13/17 17:00 08/13/17 17:01 DC Procedures/MDM X-ray Elbow 2V Interpreted by me: Bones: Fracture of radial head Joints: Posterior dislocation of the humeroulnar joint Foreign body: None Procedural Sedation: Pre-assessment performed. See preceding complete history and physical for details. Time out performed. See sedation documentation for details. Medication(s): Propofol Complications: No hypoxic or apneic events Recovered without incident. Greater than 15 minutes of face to face time included in sedation and recovery. Elbow Reduction by me: Anesthesia: None Location: Right elbow Technique: Traction Method, Prone traction method Results: Buddhist of normal anatomic positioning Compl: Neurovascularly intact post procedure. Posterior Long Arm Splint: Neurovascularly intact post sling placement with good fit. Post-reduction X-ray elbow 2V Interpreted by me: Bones: Displaced fracture of radial head, good anatomic alignment of the elbow joint Joints: Relocation of previously noted dislocation of the humeroulnar joint Foreign body: None MDM: Patient is a 67-year-old female with a mechanical ground-level fall with injury to her right elbow. X-ray showed a fracture of the humeral head with posterior dislocation of the humeral ulnar joint. The patient is on Eliquis, so intra-articular anesthesia was not attempted. The patient was sedated with propofol to good effect and the elbow was easily reduced with gentle traction and supination. She was splinted in pronation and 90 flexion in a long arm posterior splint. She was neurovascularly intact following the reduction. Follow-up x-ray did show a displaced radial head fracture. She was advised of the need to follow-up closely with orthopedic surgery. She had soft compartments and no evidence of tense hemarthrosis. Skin was intact. She did have some soft tissue tenderness in the left ankle, but no bony tenderness or indication for x-ray. She was given a prescription for Percocet for pain. Departure Diagnosis: Primary Impression: Dislocation of right elbow Encounter type: initial encounter Qualified Code: S53.104A - Dislocation of right elbow, initial encounter Additional Impressions: Radial head fracture, closed Encounter type: initial encounter Fracture alignment: displaced Laterality : right Qualified Code: S52.121A - Closed displaced fracture of head of right radius, initial encounter Ankle sprain Encounter type: initial encounter Involved ligament of ankle: anterior talofibular ligament Laterality: left Qualified Code: S93.492A - Sprain of anterior talofibular ligament of left ankle, initial encounter Condition: DELILAH Shaw MD Aug 13, 2017 13:46
[2017-08-13] MEDS ORDERED: OXYCODONE/ACETAMINOPHEN (5/325) TAB PO ONE ×2 (14:00→17:00)
--- NOTE | 2017-08-13 14:21 | RADRPT ---
PROCEDURE: X-RAY RIGHT ELBOW CLINICAL INDICATION: Fall TECHNIQUE: Two views of the right elbow are available for review COMPARISON: None available FINDINGS: Note that the examination is limited due to artifact overlying the images. There is anterior disloca tion of the humerus relative to the proximal radius and ulna. There is overlying soft tissue swellin g. There is a displaced fracture of the radial head and neck in which the fracture fragment is displ aced medially slightly overlying the inferior margin of the medial epicondyle on the AP view. The fr acture fragment is not well visualized on the lateral view. Evaluation for fractures is limited due to the overlying artifact. RPTAT: EE IMPRESSION: 1. Elbow dislocation with anterior displacement of the humerus relative to the radius and ulna. 2. Displaced fracture of the radial head and neck with medial displacement of the proximal fracture fragment. .Charlene Rodrigues MD, Date Time Electronically viewed and signed by .Charlene Rodrigues MD, on 08/13/2017 14:21 .T/
[2017-08-13] MEDS ORDERED: PROPOFOL 200 MG INJ IV ONE (15:30)
[2017-08-13] MEDS ORDERED: AMIO100T4 PO (16:01)
[2017-08-13] MEDS ORDERED: ATOR10TA65 PO (16:01)
[2017-08-13] MEDS ORDERED: CHOL200073 PO (16:02)
[2017-08-13] MEDS ORDERED: LINA72CA PO (16:03)
--- NOTE | 2017-08-13 16:11 | RADRPT ---
PROCEDURE: XR Elbow. CLINICAL INDICATION: Status post reduction TECHNIQUE: Three views of the right elbow are available for review COMPARISON: 02:06 p.m. FINDINGS: There has been reduction of the previously dislocated right elbow joint. There is a radial head frac ture with displaced fragment at the ventral medial aspect of the elbow joint. There is diffuse soft tissue swelling.. IMPRESSION: 1. Status post reduction of right elbow joint. 2. Displaced radial head fracture with ventromedial position of fracture fragment.. RPTAT: QQ .Lamont Morataya MD, Date Time Electronically viewed and signed by .Lamont Morataya MD, on 08/13/2017 16:10 .L/
[2017-08-13] MEDS ORDERED: OXYC-279 PO (16:43)
[2017-08-13] MEDS ORDERED: POLY17PO6 PO (16:43)
[2017-08-13 17:03] VITALS: BP 130/69; PULSE 71; RESP 20
== END 2017-08-13 17:04 | disposition home or self-care (01) ==
LOC: E/R 13:27
DX: S53.104A Unspecified dislocation of right ulnohumeral joint, initial encounter (principal); S52.121A Displaced fracture of head of right radius, initial encounter for closed fracture; S93.492A Sprain of other ligament of left ankle, initial encounter; W01.0XXA Fall on same level from slipping, tripping and stumbling without subsequent striking against object, initial encounter; Y92.22 Religious institution as the place of occurrence of the external cause; Z79.01 Long term (current) use of anticoagulants